=== PATIENT | female | born 2000 ===

== ENCOUNTER 2020-11-03 20:50 | Observation (INO) | payer SELFPAY ==
[~2020-11-03] VITALS: Ht 158 cm; Wt 62.6 kg
[2020-11-03] MEDS ORDERED: PREN1TAB80 PO (21:41)
[2020-11-03 21:48] VITALS: BP 119/70
[2020-11-03 21:58] LABS: APPEARANCE,URINE CLEAR (CLEAR); BILIRUBIN,URINE NEGATIVE (NEGATIVE); GLUCOSE, URINE (UA) NEGATIVE (NEGATIVE); KETONES,URINE NEGATIVE (NEGATIVE); LEUKOCYTE ESTERASE ,URINE NEGATIVE (NEGATIVE); NITRATE,URINE NEGATIVE (NEGATIVE); OCCULT BLOOD,URINE NEGATIVE (NEGATIVE); PROTEIN,URINE NEGATIVE (NEGATIVE); UROBILINOGEN,URINE 0.2 mg/dL (<=1.0)
== END 2020-11-03 22:45 | disposition home or self-care (01) ==
LOC: 4S 20:50
PROVIDERS: ADMIT Obstetrics & Gynecology; ATTEND Obstetrics & Gynecology
DX: O62.9 Abnormality of forces of labor, unspecified (principal); Z3A.40 40 weeks gestation of pregnancy
CPT/HCPCS: 59025; 81003; 99219